=== PATIENT | male | born 1960 | race Caucasian/White ===

== ENCOUNTER → 2019-02-08 08:06 | Outpatient (CLI) | payer OTHER ==
[~2019-02-08 08:06] MED LIST: ALEVE220 MG PO; NEXIUM20 MG PO
--- NOTE | 2019-02-13 12:04 | EC ---
PATIENT:KELIN OWUSU DATE OF SERVICE: 02/08/19 SEX: M MEDICAL RECORD: [id number] DATE OF : 58 LOCATION:[facility] [place] AGE OF PATIENT: 58 ADMISSION DATE: 02/08/19 REFERRING PHYSICIAN: INTERPRETING PHYSICIAN: JORDANA ESTRADA MD ECHOCARDIOGRAM REPORT ECHO CHARGES 4 ECHO COMPLETE Date: 02/08/19 CLINICAL DIAGNOSIS: MURMUR/DYSPNEA/CAD ECHOCARDIOGRAPHIC MEASUREMENTS (adult normal given) AC root (d.<3.7cm) 3.5 cm LV Septum d (<1.2 cm> 1.3 cm Valve Excursion 1.7 cm LV Septum (systole) 1.4 cm Left Atria (s.<4.0cm> 3.3 cm LVPW d(<1.2cm) 1.2 cm RV (d.<2.3cm) 4.7 cm LVPW (sytole) 1.6 cm LV diastole(<5.6CM) 4.2 cm MV E-F(>70mm/sec) cm LV systole 3.3 cm LVOT Diameter 2.1 cm MV exc.(>10mm) 1.4 cm Est.ejection fraction (50-75%) % DOPPLER: LVIT cm/sec A 62.0 cm/sec E 49.0 cm/sec LA cm/sec RVSP 31 mmHg LVOT 70 cm/sec AOP1/2T m/s Asc. Ao 90 cm/sec RVOT 48 cm/sec RA cm/sec PA 86 cm/sec AV Gradient Peak 3.25 mmHg AV Mean 1.75 mmHg AV Area 2.4 cm MV Gradient Peak 2.14 mmHg MV Mean 0.66 mmHg MV Area cm COMMENTS: Laser Beam Color Scanner Operator: Ruth SLAUGHTER Television Writer: 1 Dr. Estrada TAPE# PACS Pericardial Effusion N DATE OF SERVICE: 02/08/2019 FINDINGS: 1. Left ventricular chamber size is within normal limits. Left ventricular systolic function is normal. Overall ejection fraction estimated at 55%. 2. Left atrium is within normal limits at 3.3 cm. Right atrium and right ventricular chamber sizes are mildly dilated. 3. Valvular structures have normal structure and motion. 4. Doppler interrogation reveals moderate mitral regurgitation, mild tricuspid regurgitation, no other valvular insufficiency or stenosis. Pulmonary systolic ECHOCARDIOGRAM REPORT [id number] KEILN OWUSU pressure is estimated at 31 mmHg. 5. No evidence of pericardial effusion or left ventricular thrombus. TRANSINT:[id number] Voice Confirmation ID: [id number] DOCUMENT ID: [id number] JORDANA ESTRADA MD at 1204 CC: [id number] DICTATION DATE: 02/12/19 1125 KILN TRANSFER OPERATOR: 02/12/19 1135 DEP CLI 02/08/[address] [address]
[2019-03-21 09:06] VITALS: BMI 27.3
== END | disposition home or self-care (01) ==
LOC: D.HCCARDIO 08:06
PROVIDERS: ATTEND Internal Medicine Cardiovascular Disease
DX: I20.9 Angina pectoris, unspecified (principal); R01.1 Cardiac murmur, unspecified

== ENCOUNTER 2019-03-21 08:37 | Outpatient (CLI) | payer OTHER ==
[~2019-03-21] VITALS: Ht 177.8 cm; Wt 86.4 kg
--- NOTE | ~2019-03-21 | HEMODYNAMI ---
PATIENT:KELIN OWUSU MEDICAL RECORD: [id number] : 58 LOCATION:D.CAT ADMISSION DATE: 03/21/19 Generatedon:03/21/201910:22 Patient name: KELIN OWUSU Patient #: [id number] : 1960 Date of study: 03/21/2019 Page: Of Hemodynamic Procedure Report Patient Data Patient Demographics Procedure consent was obtained First Name: KELIN Gender: Male Last Name: FRANCOISE : 1960 Patient #: [id number] Age: 59 year(s) Race: Unknown SSN: [id number] Additional ID: [id number] Contact details Address: [address] [place] [address] State: [place] City: [place] Zip code: [address] Past Medical History Allergies Allergen Reaction Date Comments Reported Other allergy 03/21/2019 Milk, Sulfa Admission Admission Data Admission Date: 03/21/2019 Admission Time: 8:37 Admit Source: Other Insurance Payor: Private health insurance Lab Results Lab Result Date: 03/21/2019 Lab Result Time: 9:09 CBC Name Units Result Min Max Hematocrit % 44.7 --(*---)-- 42 54 Hemoglobin g/dl 15.3 --(-*--)-- 13.5 17.5 Procedure Procedure Types Cath Procedure Diagnostic Procedure LHC LHC w/Coronaries Procedure Description Procedure Date Procedure Date: 03/21/2019 Procedure Start Time: 10:09 Procedure End Time: 10:20 Procedure Staff Name Function Zenon Estrada MD Performing Physician Kody Bernal RT Monitor Latoya Marshall RT Scrub Eber Garza RN Nurse Procedure Data Cath Procedure Fluoroscopy Diagnostic fluoroscopy Total fluoroscopy Time: 2.8 time: 2.8 min min Diagnostic fluoroscopy Total fluoroscopy dose: 560 dose: 560 mGy mGy Contrast Material Contrast Material Type Amount (ml) Isovue 300 57 Entry Location Entry Primary Successful Side Size Upsize Upsize Entry Closure Azul ccessful Closure Location (Fr) 1 (Fr) 2 (Fr) Remarks Device Remarks Radial Right 6 Fr Mechanical artery Short Compression Estimated blood loss: 5 ml Diagnostic catheters Device Type Used For End Catheter Placement DIAGNOSTIC Mcdermott 110cm 5 Procedure Fr catheter ([id number]) DIAGNOSTIC AR2 MOD 5 Fr Procedure catheter ([id number]) Procedure Complications No complications Procedure Medications Medication Administration Route Dosage 0.9% NaCl I.V. 100 ml/hr Oxygen etCO2 Nasal cannula 2 l/min Heparin Flush Bag added to field 2 bags (1000units/500ml NS) Lidocaine 2% added to field 20 Radial Cocktail added to field 1 syringe (Verapamil 2mg/Nitro 400mcg/Heparin 1500units) Versed I.V. 2 mg Fentanyl I.V. 100 mcg Radial Cocktail I.A. 1 syringe (Verapamil 2mg/Nitro 400mcg/Heparin 1500units) Versed I.V. 2 mg Hemodynamics Rest Heart Rate: 65 (bpm) Pressure Samples Time Site Value (mmHg) Purpose Heart Use Rate(bpm) 10:11 LV 72/2,11 Snapshot 84 Snapshots Pre Cath Intra NCS Post Cath Vital Signs Time Heart Resp SPO2 etCO2 NIBP (mmHg) Rhythm Pain Sedation Rate (ipm) (%) (mmHg) Status Level (bpm) 9:55:19 66 16 98 20.9 125/95(106) NSR 0 (11) 10(A) , No pain 9:59:21 70 18 98 41.1 125/94(106) NSR 0 (11) 10(A) , No pain 10:03:25 72 19 98 0 127/90(105) NSR 0 (11) 10(A) , No pain 10:07:31 69 19 98 39.6 124/83(101) NSR 0 (11) 10(A) , No pain 10:11:40 55 11 96 37.4 118/71(99) NSR 0 (11) 9(A) , No pain 10:15:46 81 18 92 39.6 115/74(92) NSR 0 (11) 9(A) , No pain 10:19:50 78 8 94 39.6 119/79(94) NSR 0 (11) 9(A) , No pain Medications Time Medication Route Dose Verified Delivered Reason Notes Effectiveness by by 9:54:02 0.9% NaCl I.V. 100 Eber Eber Per ml/hr Greg Garza physician RN RN 9:54:16 Oxygen etCO2 2 l/min Eber Eber for low 02 Nasal Lorigan Lorigan sats cannula RN RN 9:54:28 Heparin Flush added 2 bags Eber Eber used for Bag to Lorigan Greg procedure (1000units/500ml field RN RN NS) 9:54:39 Lidocaine 2% added 20ml Eber Eber for local to vial Lorigan Lorigan anesthetic field RN RN 9:54:50 Radial Cocktail added 1 Eber Eber used for (Verapamil to syringe Lorigan Lorigan procedure 2mg/Nitro field RN RN 400mcg/Heparin 1500units) 10:09:00 Versed I.V. 2 mg Eber Eber for sedation Greg Garza RN RN 10:09:10 Fentanyl I.V. 100 mcg Eber Eber for sedation Greg Garza RN RN 10:10:38 Radial Cocktail I.A. 1 Eber Zenon for (Verapamil syringe Lorigan Tauth MD vasodilation 2mg/Nitro RN 400mcg/Heparin 1500units) 10:10:50 Versed I.V. 2 mg Eber Eber for sedation Greg Garza RN special client bus driver Log Time Note 8:49:10 Informed consent obtained and on chart 8:53:53 Admit Source: Other 8:53:57 Insurance Payor : Private health insurance 9:39:51 Procedure Status Elective Heart Cath (OP). 9:39:52 Latoya Marshall RT(R) sent for patient. Start room use. 9:40:52 Time tracking: Regular hours (M-F 7:00 - 5:00) 9:40:55 Plan of Care:Hemodynamics will remain stable., Cardiac rhythm will remain stable., Comfort level will be maintained., Respiratory function will remain adequate., Patient/ family verbilizes understanding of procedure., Procedure tolerated without complication., Recovers from procedure without complications.. 9:41:00 ACC Patient presents with Stable Angina CCS Anginal Class 3--Marked limitation of physical activity, angina occurs with ordinary activity.. 9:41:11 ACCPatient has been prescribed/administered the following anti-anginal medication within the last 2 weeks: None 9:42:12 Patient allergic to Other allergyMilk, Sulfa 9:42:55 Lab Result : Hemoglobin 15.3 g/dl 9:42:55 Lab Result : Hematocrit 44.7 % 9:43:02 Patient received from Pre/Post Procedure Room to CCL 2 Alert and oriented. Tansferred to table in Supine position. 9:43:03 Warm blankets applied, and nae hugger turned on for patient comfort. 9:43:04 Correct patient and procedure confirmed by team. 9:43:11 H&P Date Dictated: 03/07/2019 Within 30 days and on chart., H&P Addendum completed by physician on day of procedure. (MUST COMPLETE FOR ALL OUTPATIENTS). 9:54:02 0.9% NaCl 100 ml/hr I.V. was administered by Eber Garza RN; Per physician; Verbal order read back and verified. 9:54:13 ECG and BP/O2 sat monitors applied to patient. 9:54:13 Vital chart was started 9:54:14 Baseline sample Acquired. 9:54:16 Oxygen 2 l/min etCO2 Nasal cannula was administered by Eber Garza RN; for low 02 sats; Verbal order read back and verified. 9:54:25 Rhythm: sinus rhythm 9:54:27 Full Disclosure recording started 9:54:28 Heparin Flush Bag (1000units/500ml NS) 2 bags added to field was administered by Eber Garza RN; used for procedure; Verbal order read back and verified. 9:54:28 Pre-procedure instructions explained to patient. 9:54:28 Pre-op teaching completed and patient verbalized understanding. 9:54:30 Family in waiting room. 9:54:32 Patient NPO since Midnight. 9:54:34 Is the patient allergic to Iodine/contrast media? No. 9:54:35 Is patient on blood thinner?No 9:54:37 Patient diabetic? No. 9:54:39 Lidocaine 2% 20ml vial added to field was administered by Eber Garza RN; for local anesthetic; Verbal order read back and verified. 9:54:40 Previous problem with sedation/anesthesia? No ? 9:54:42 Snore? Yes 9:54:43 Sleep apnea? No 9:54:43 Deviated septum? No 9:54:44 Opens mouth fully? Yes 9:54:45 Sticks out tongue? Yes 9:54:46 Airway obstruction? No ? 9:54:48 Dentures? No ? 9:54:50 Radial Cocktail (Verapamil 2mg/Nitro 400mcg/Heparin 1500units) 1 syringe added to field was administered by Eber Garza RN; used for procedure; Verbal order read back and verified. 9:54:50 Pre procedure: right dorsailis pedis pulse 2+ Normal; easily identifiable; not easily obliterated 9:54:53 Modified Hans's test Ulnar > 7 seconds. 9:54:54 Patient pain scale 0/10 ?. 9:55:02 IV patent on arrival in left forearm with 0.9% NaCl at [facility]. 9:55:04 Lab results completed and on chart. 9:55:07 Right Radial & Right Groin area was prepped with chlora-prep and draped in sterile fashion 9:55:08 Alarms reviewed by R. N. 9:55:08 Sharps counted by scrub and verified by R.N. 9:55:10 Use device set Radial Dx or PCI 9:55:11 ACIST Syringe (41979) opened to sterile field. 9:55:12 Medline Cath Pack ([id number]) opened to sterile field. 9:55:12 Bag Decanter (2002S) opened to sterile field. 9:55:12 ACIST Hand Control (34729) opened to sterile field. 9:55:13 ACIST Manifold (21282) opened to sterile field. 9:55:13 Tegaderm 4 x 4 (1626W) opened to sterile field. 9:55:15 MBrace Wrist Support ([id number]) opened to sterile field. 9:55:17 SHEATH 6FR RAIN (2334328) opened to sterile field. 9:55:18 EMERALD Guide Wire (552-123) opened to sterile field. 9:59:19 Zero performed for pressure channel P1 10:07:22 Physician arrived 10:07:22 --------ALL STOP TIME OUT------ 10:07:22 Final Timeout: patient, procedure, and site verified with staff and physician. All members of the team are in agreement. 10:07:24 Right Radial & Right Groin site verified by team. 10:07:27 Fire Safety Assessment: A--An alcohol-based skin anteseptic being used preoperatively., C--Open oxygen or nitrous oxide is being used., D--An ESU, laser, or fiber-optic light is being used. 10:07:30 Physical assessment completed. ASA score P 2 - A patient with mild systemic disease as per Zenon Estrada MD. 10:08:06 Maximum allowable contrast dose (3.7 X eGFR X 0.75)199 ml. 10:08:11 Sedation plan: IV Moderate Sedation Medication:Versed, Fentanyl 10:09:00 Versed 2 mg I.V. was administered by Eber Garza RN; for sedation; Verbal order read back and verified. 10::06 Procedure started. 10:09:10 Fentanyl 100 mcg I.V. was administered by Eber Garza RN; for sedation; Verbal order read back and verified. 10::10 Local anesthetic to right radial artery with Lidocaine 2% by Zenon Estrada MD.INITIAL ACCESS ONLY 10:09:20 A 6 Fr Short sheath was inserted into the Right Radial artery 10:09:55 A DIAGNOSTIC Mcdermott 110cm 5 Fr catheter (096765) was advanced over the wire and used for Procedure. 10:10:38 Radial Cocktail (Verapamil 2mg/Nitro 400mcg/Heparin 1500units) 1 syringe I.A. was administered by Zenon Estrada MD; for vasodilation; Verbal order read back and verified. 10:10:50 Versed 2 mg I.V. was administered by Eber Garza RN; for sedation; Verbal order read back and verified. 10:12:01 LV gram done using COBIAN 10:12:02 Injector settings: Ml/sec: 5, Volume: 15, 10:12:03 LV hemodynamics recorded. 10:12:08 EF : 55 % 10:14:13 Catheter exchanged over wire. 10:14:30 A DIAGNOSTIC AR2 MOD 5 Fr catheter ([id number]) was advanced over the wire and used for Procedure. 10:14:34 RCA angiography performed. 10:14:53 Catheter exchanged over wire. 10:15:56 6 Fr xblad 3.5 guide catheter was inserted over the wire 10:16:42 LCA angiography performed. 10:17:50 Catheter removed. 10:17:53 ZEPHYR REGULAR TR BAND (771383) opened to sterile field. 10:18:00 Sheath removed intact; hemostasis achieved with Mechanical Compression to the Right Radial artery. 10:18:03 Procedure ended.(Physican Out) 10:19:10 Fluoroscopy time 02.80 minutes. 10:19:16 Fluoroscopy dose: 560 mGy 10:19:16 Flurop Dose total: 560 10:19:22 Dose Area Product 97250 mGy/cm. 10:19:27 Contrast amount:Isovue 300 57ml. 10:19:28 Maximum allowable dose exceeded? No. 10:19:29 Sharps counted by scrub and verified by R.N. 10:19:32 [place] band inflated with 12cc of air. 10:19:34 Insertion/operative site no bleeding no hematoma. 10:19:39 Post right radial artery:stable, soft, clean and dry 10:19:40 Post Procedure Pulses reassessed and unchanged 10:19:42 Post-procedure physical assessment completed. ASA score P 2 - A patient with mild systemic disease as per Zenon Estrada MD. 10:19:45 Post procedure rhythm: unchanged. 10:19:48 Estimated blood loss: 5 ml 10:19:49 Post procedure instruction explained to patient.Patient verbalizes understanding. 10:19:49 Patient needs reinforcement of post procedure teaching. 10:20:13 Procedure and supply charges have been captured, reviewed, submitted and are correct. 10:20:15 Procedure Complication : No complications 10:20:17 Vital chart was stopped 10:20:18 See physician's report for complete and final results. 10:20:19 Report given to Pre/Post Procedure Room. 10:20:21 Patient transfered to Pre/Post Procedure Room with Stretcher. 10:20:23 Procedure ended. 10:20:23 Full Disclosure recording stopped 10:20:28 End room use (Document Last) 10:21:50 End room use (Document Last) 10:22:19 End room use (Document Last) Device Usage Item Name Manufacture Quantity Catalog Hospital Part Current Minima l Lot# / Number Charge Number Stock Stock Serial# Code ACIST Acist 1 33455 665461 995674 269624 20 Syringe Loci Controls (78325) Systems Inc Medline Medline 1 [id number] 475602 12426 761156 5 Cath Pack ([id number]) Bag Microtek 1 428092 88429 172053 5 Decanter Medical Inc. () ACIST Hand Acist 1 44273 755323 269554 114437 5 Control Medical (77524) Systems Inc ACIST Acist 1 22682 949585 916564 055456 5 Manifold Medical (84853) Systems Inc Tegaderm 4 3M 1 1626W 749065 956322 063456 5 x 4 (1626W) MBrace Advanced 1 140-0250-00 741737 76569 570177 5 Wrist Vascular Support Dynamics ([id number]) SHEATH 6FR Cardinal 1 4191930 497610 1092354 006515 5 RAIN Health (0148278) EMERALD Cardinal 1 502-455 065448 492250 145408 5 Guide Wire Health (608-881) DIAGNOSTIC Terumo 1 40-7603 969228 398697 776257 5 Mcdermott 110cm 5 Fr catheter (591765) DIAGNOSTIC Cardinal 1 [id number] 209633 210171 952355 20 AR2 MOD 5 Health Fr catheter (188545T) ZEPHYR Cardinal 1 154486 845395 0968477 790740 5 REGULAR TR Health BAND (310461) Signature Audit [place] Stage Time Signature Unsigned Intra-Procedure 03/21/2019 Eber 10:21:50 AM Greg BALDWIN Intra-Procedure 03/21/2019 Kody Bernal 10:22:19 AM RT(R) Intra-Procedure 03/21/2019 Zenon Estrada 10:22:35 AM [place] [id number] [place] [address]
[2019-03-21] MEDS ORDERED: ALEVE220 MG PO (08:52)
[2019-03-21] MEDS ORDERED: NEXIUM20 MG PO (08:52)
[2019-03-21 09:06] VITALS: BP 129/86; Ht 177.8 cm; Wt 86.4 kg
[2019-03-21 09:26] LABS: BASOPHILS 0.6 % (0-2); EOSINOPHILS 4.9 % (0-7); HEMATOCRIT 44.3 % (42.0-54.0); HEMOGLOBIN 15.7 g/dL (13.5-17.5); IMMATURE GRANULOCYTES 0.2 % (0-5); LYMPHOCYTES 34.4 % (15-50); MCH 32.4 pg (26.0-34.0); MCHC 35.4 g/dL (31.0-37.0); MCV 91.5 fL (80.0-100.0); MEAN PLATELET VOLUME 12.4 fL (7.4-10.4); MONOCYTES 11.5 % (2-11); NEUTROPHILS 48.4 % (40-80); PLATELET COUNT 145 10x3/uL (130-400); RBC 4.84 10x6/uL (4.20-6.10); RDW 13.6 % (11.5-14.5); WBC 5.1 10x3/uL (4.8-10.8)
[2019-03-21 09:49] LABS: ANION GAP 9.2 mmol/L (8-16); CALCIUM 8.6 mg/dL (8.5-10.1); CHOL - HDL RATIO 4.1 ratio (2.3-4.9); CREATININE - SERUM 1.1 mg/dL (0.6-1.3); LDL-HDL RATIO 2.7 ratio (1.5-3.5); POTASSIUM - SERUM 4.2 mmol/L (3.5-5.1)
--- NOTE | 2019-03-21 10:30 | NUR ---
PT RECEIVED VIA STRETCHER FROM DRUG DEPARTMENT WORKER POST PROCEDURE. PT SLEEPING BUT VERBALLY AROUSABLE. ZYPHER BAND AND IMMOBILIZER IN PLACE, DRESSING CDI NO BLEEDING OR SWELLING NOTED. ARM PINK AND WARM, CAP REFILL BRISK. MONITORS ON AT O2 93 ON ROOM AIR. CALL LIGHT IN REACH
--- NOTE | 2019-03-21 11:00 | NUR ---
PT DROWSY BUT AWAKE VISITING W . Z BAND AND IMMOBILIZER IN PLACE, DRESSING CDI NO BLEEDING OR HEMATOMA NOTED. ARM PINK AND WARM, VSS. PT DENIES PAIN OR NEEDS. CALL LIGHT IN REACH.
--- NOTE | 2019-03-21 11:40 | NUR ---
Z BAND AND IMMOBILIZER IN PLACE, DRESSING REMAINS CDI. NO BLEEDING OR SWELLING NOTED. AIR REMOVAL PROCESS BEGAN, 4CC AIR REMOVED W/O BLEEDING OR SWELLING. ARM PINK AND WARM, CAP REFILL BRISK. PT TOLERATING PO FLUIDS. DENIES NEEDS. DR ROMO IN AND SPOKE WITH PT AND REGARDING PROCEDURE RESULTS AND PLAN OF CARE. CALL LIGHT IN REACH
--- NOTE | 2019-03-21 12:15 | NUR ---
3 ADD'L CC AIR REMOVED FROM Z BAND, NO BLEEDING OR SWELLING NOTED. IV REMOVED W CATH INTACT, MONITORS AND O2 REMOVED. PT UP TO DRESS FOR DISCHARGE. DISCHARGE INSTRUCTIONS REVIEWED W PT AND , BOTH VERBALIZED UNDERSTANDING.
--- NOTE | 2019-03-21 12:20 | NUR ---
PT AMBULATED TO BR VOIDING W/O DIFFICULITY. 1230 Z BAND AND REMAINING AIR REMOVED W/O BLEEDING. 2X2 AND TEGADERM DRESSING APPLIED. PT DISCHARGED VIA WC TO PRIVATE VEHICLE, ALL BELONGINGS AND DISCHARGE PAPERS IN HAND.
--- NOTE | 2019-03-22 09:14 | OP ---
PATIENT NAME: KELIN OWUSU MEDICAL RECORD: [id number] :58 LOCATION:D.CAT ADMISSION DATE: SURGEON: JORDANA ROMO MD DATE OF OPERATION: 03/21/2019 DATE OF SERVICE: 03/21/2019 PROCEDURES: 1. Left heart catheterization. 2. Selective coronary angiography. 3. Left ventriculogram. INDICATION: Angina, abnormal nuclear stress test. PROCEDURE IN DETAIL: After informed consent was obtained and after a detailed description of risks, benefits as well as alternative therapies, the patient elected to proceed with angiogram and heart catheterization. The right radial area was prepped and draped in normal sterile fashion. Right radial artery was cannulated via modified Seldinger technique with placement of 5-Latvian sheath. All catheters exchanged through this sheath. FINDINGS: Left ventriculogram was performed in standard 30-degree COBIAN view, reveals good cardiac wall motion throughout all segments. Overall ejection fraction estimated at 60%. SELECTIVE CORONARY ANGIOGRAPHY: Left main, left anterior descending, left circumflex, right coronary artery are all smooth-walled vessels with no angiographic evidence of coronary artery disease. OVERALL IMPRESSION: 1. No angiographic evidence of coronary artery disease. 2. Normal left heart pressures. 3. Normal left ventricular systolic function. Chest pain is noncardiac in etiology. No further cardiac workup needs to be ascertained. TRANSINT:[id number] Voice Confirmation ID: [id number] DOCUMENT ID: [id number] JORDANA ROMO MD at 0914 CC: [id number] DICTATION DATE: 03/21/19 1021 VEGETABLE SORTER: 03/21/19 1557 [facility] CLI 03/21/19 [place] [id number] [place] [id number]
== END 2019-03-21 12:30 | disposition home or self-care (01) ==
LOC: D.CATH 08:37
PROVIDERS: ATTEND Internal Medicine Interventional Cardiology
DX: I20.9 Angina pectoris, unspecified (principal); R94.30 Abnormal result of cardiovascular function study, unspecified; R06.02 Shortness of breath